=== PATIENT | male | born 1975 | race Caucasian/White ===

== ENCOUNTER 2023-12-20 16:06 | Emergency (ER) | payer BC, SELFPAY ==
[2023-12-20 16:07] VITALS: BP 146/102; PULSE 76; RESP 18; TEMP 36.1; O2SAT 99; BMI 36.8
[2023-12-20 16:53] VITALS: BMI 36.6
[2023-12-20 17:15] VITALS: BP 144/99; PULSE 79; RESP 18; TEMP 36.4; O2SAT 100
[2023-12-22 14:10] LABS: Lyme Scn Total Ab w/Rflx Negative (Negative)
== END 2023-12-20 17:15 | disposition home or self-care (01) ==
PROVIDERS: Emergency Provider Emergency Medicine; Visit Provider Emergency Medicine
DX: G51.0 Bell's palsy (principal); S20.369A Insect bite (nonvenomous) of unspecified front wall of thorax, initial encounter; W57.XXXA Bitten or stung by nonvenomous insect and other nonvenomous arthropods, initial encounter; R03.0 Elevated blood-pressure reading, without diagnosis of hypertension
CPT/HCPCS: 86618; 99282